=== PATIENT | male | born 1965 | race African-American/Black ===

== ENCOUNTER → 2017-05-27 | Day surgery (SDC) | payer MEDICARE, MEDICAID ==
[2017-05-26 13:22] VITALS: BMI 23.4
[~2017-05-27] MED LIST: Lidocaine 1% PF 5 ML VIAL ONE; Midazolam HCl 2 mg/2 ml Vial ONE; PROPOFOL 200 MG/20 ML VIAL ONE
--- NOTE | 2017-05-27 21:19 | OP ---
PREOPERATIVE DIAGNOSES: 1. Mild anemia. 2. Family history of colon cancer in brother. POSTOPERATIVE DIAGNOSES: 1. Normal esophagus, stomach, second and third portions of duodenum and no source of gastrointestina l blood loss identified. 2. Colonoscopy notable for 3 polyps, one at the splenic flexure and two into the descending colon, a ll less than 5 mm in size, removed by cold snare polypectomy and submitted to Pathology. RECOMMENDATIONS: Await histopathology, repeat colonoscopy in 5 years due to family history. ANESTHESIA: TIVA. PROCEDURE IN DETAIL: After the patient was informed of the risks, benefits, possible complications o f endoscopy including perforation, bleeding, reactions to medication and aspiration, informed consent was obtained. The patient brought to endoscopy suite where he was sedated in gradual fashion. Once he was comfortable, a bite block was placed in incisural orifice. The esophagus, stomach, and secon d, and third portions of the duodenum were normal. The stomach was viewed in forward and retroflex p ositions. The stomach was then desufflated. The scope was removed. The patient was turned in the r oom. A rectal examination was performed. The endoscope was advanced through anal canal, through the colon to the cecum which was identified by the ileocecal valve and appendiceal orifice. The scope w as then slowly removed. The prep was very good. There was three small polyps, one at the splenic fl exure and two at the descending colon was removed by snare polypectomy and submitted to Pathology. R etroflexed views in the rectum were normal. The scope was removed. The patient tolerated the proced ure well and was brought to recovery room in stable condition.
== END ==
LOC: SDC 12:27
PROVIDERS: ATTEND Internal Medicine Gastroenterology
PROC: 0DBM8ZX Excision of Descending Colon, Via Natural or Artificial Opening Endoscopic, Diagnostic (ICD-10-PCS; principal; 2017-05-27)
PROC: 0DBL8ZX Excision of Transverse Colon, Via Natural or Artificial Opening Endoscopic, Diagnostic (ICD-10-PCS; 2017-05-27)
PROC: 0DJ08ZZ Inspection of Upper Intestinal Tract, Via Natural or Artificial Opening Endoscopic (ICD-10-PCS; 2017-05-27)
DX: D12.3 Benign neoplasm of transverse colon (principal); D50.9 Iron deficiency anemia, unspecified; Z79.899 Other long term (current) drug therapy; Z98.890 Other specified postprocedural states
CPT/HCPCS: 88305; J2001; J2250; J2704

== ENCOUNTER 2022-06-02 06:02 | Day surgery (SDC) | payer MEDICARE, MEDICAID ==
[2022-06-01 12:13] VITALS: BMI 25.6
[2022-06-02] MEDS ORDERED: Midazolam HCl 2 mg/2 ml Vial ONE (08:26)
[2022-06-02] MEDS ORDERED: Lidocaine 1% PF 5 ML VIAL ONE (08:45)
[2022-06-02] MEDS ORDERED: PHENYLEPHRINE-NS 100 MCG/ML 10 ML SYRINGE ONE (08:45)
[2022-06-02] MEDS ORDERED: PROPOFOL 200 MG/20 ML VIAL ONE (08:45)
== END 2022-06-02 09:50 | disposition home or self-care (01) ==
LOC: SDC 06:02
PROVIDERS: ATTEND Internal Medicine Gastroenterology
PROC: 0DBM8ZX Excision of Descending Colon, Via Natural or Artificial Opening Endoscopic, Diagnostic (ICD-10-PCS; principal; 2022-06-02)
PROC: 0DBN8ZX Excision of Sigmoid Colon, Via Natural or Artificial Opening Endoscopic, Diagnostic (ICD-10-PCS; 2022-06-02)
DX: Z12.11 Encounter for screening for malignant neoplasm of colon (principal); D12.4 Benign neoplasm of descending colon; D12.5 Benign neoplasm of sigmoid colon; Z86.010 Personal history of colon polyps; Z79.899 Other long term (current) drug therapy
CPT/HCPCS: 88305; J2250; J2704